=== PATIENT | female | born 1950 | race Caucasian/White ===

== ENCOUNTER → 2020-09-15 | Outpatient (CLI) | payer OTHER, SELFPAY ==
[~2020-09-15] MED LIST: CATAPRES 0.1MG0.1 MG PO; HYDROCHLOROTHIA25 MG PO
== END ==
LOC: EXRD 08:00
DX: N18.30 Chronic kidney disease, stage 3 unspecified (principal)
CPT/HCPCS: 76775

== ENCOUNTER → 2021-05-24 | Outpatient (CLI) | payer OTHER ==
[2021-05-25 10:15] LABS: CREATININE, URINE 77.7 mg/dL (Not Estab.)
== END ==
LOC: LAB 10:05
PROVIDERS: Internal Medicine Nephrology
DX: N18.30 Chronic kidney disease, stage 3 unspecified (principal)
CPT/HCPCS: 36415; 80053; 81001; 82043; 82570; 84156